=== PATIENT | male | born 1970 | race Asian ===

== ENCOUNTER 2016-04-29 11:17 | Emergency (ER) | payer OTHER ==
[~2016-04-29] VITALS: Ht 182.9 cm; Wt 181.4 kg
[~2016-04-29 11:17] MED LIST: ADIPEX PO; HYDR25TA60 PO
== END 2016-04-29 13:30 | disposition home or self-care (01) ==
LOC: ED 11:17
DX: S39.012A Strain of muscle, fascia and tendon of lower back, initial encounter (principal); X50.1XXA Overexertion from prolonged static or awkward postures, initial encounter
CPT/HCPCS: 96372; 99283; J1170

== ENCOUNTER 2020-06-10 08:45 | Outpatient (CLI) | payer BC, OTHER | END 2020-06-10 22:48 | disposition home or self-care (01) | LOC: RAD 08:45 | PROVIDERS: ATTEND Nurse Practitioner Family | DX: Z01.818 Encounter for other preprocedural examination (principal) ==

== ENCOUNTER 2020-09-05 09:29 | Outpatient (CLI) | payer BC, OTHER ==
[2020-09-05 10:10] LABS: PLATELET COUNT 266 K/uL (142-355)
[2020-09-05 11:03] LABS: POTASSIUM 3.9 mmol/L (3.6-5.2)
== END 2020-09-05 22:00 | disposition home or self-care (01) ==
LOC: RESP 09:29
PROVIDERS: ATTEND Internal Medicine Critical Care Medicine
DX: R91.8 Other nonspecific abnormal finding of lung field (principal)
CPT/HCPCS: 36415; 80048; 85027; 93005

== ENCOUNTER 2021-06-03 09:21 | Outpatient (CLI) | payer BC, OTHER | END 2021-06-03 18:54 | disposition home or self-care (01) | LOC: RAD 09:21 | PROVIDERS: ATTEND Nurse Practitioner Family | DX: Z01.810 Encounter for preprocedural cardiovascular examination (principal); M15.0 Primary generalized (osteo)arthritis; E66.01 Morbid (severe) obesity due to excess calories ==